=== PATIENT | female | born 1950 | race Caucasian/White ===

== ENCOUNTER → 2016-08-15 | Outpatient (CLI) | payer OTHER ==
[~2016-08-15] MED LIST: ACETAMINOPHEN PO; ARIMIDEX1 MG PO; ARIXTRA2.5 MG/0.1 SQ; ASPIRIN ENTERI325 M1 PO; CIPRO PO; COLACE50 MG PO; EFFEXOR XR PO; FERROUS SULFATE PO; FLAGYL PO; HYDROCODONE-APA1 T41 PO; KEFLEX500 MG; LISINOPRIL10 MG PO; LISINOPRIL20 MG PO; LORTAB 10/500 T1 TAB PO; LORTAB 5/500 TA1 TA1 PO; OXYCODONE HCL5 MG PO; OXYCONTIN20 MG PO; PERCOCET5/325; PHENERGAN25 MG PO; PRILOSEC PO; PRILOSEC20 M1 PO; PRILOSEC20 MG; SIMVASTATIN10 MG; SIMVASTATIN10 MG PO; VITAMIN D-32000 UNIT PO
--- NOTE | ~2016-08-15 | BD1 ---
[facility] A Service of [facility] RADIOLOGY TEXT RESULTS PATIENT: SAEED PLUMMER LOCATION: [facility] : 48 UNIT #: [id number] AGE: [address]: MORRIS BRENNER SEX: F ORDER DR: [id number] [facility] [address] [place], [place] [address] [id number] O MR#: [id number] Acc #: [id number] NAME: SAEED PLUMMER : 1950 SEX: F STUDY DATE/TIME: 08/15/2016 14:02 UNIT: [facility] ROOM: STUDY DESCRIPTION: BD Dexa Bone Dens 1+ Site Attending Physician: Morris Brenner M.D. Referring Physician: Morris Brenner M.D. Ordering Physician: Nataliia Enriquez Primary Care Physician: Morris Brenner M.D. MEDICAL IMAGING REPORT This report is preliminary unless electronic signature is present EXAM DEXA scan 08/15/2016 HISTORY Status post menopause with no hormone replacement therapy. Osteopenia. Hypertension with blood pressure medication for 2 years. FINDINGS Bone mineral density in the lumbar spine from L1-L4 was 1.123 g/cm2 which is 0.7 standard deviations above the mean when compared to the young adult reference population which is within the range of normal. This is 2.6 standard deviations above the mean when compared to the age-matched population. Compared with 09/21/2009 there has been an increase in bone mineral density in the lumbar spine of 1.2%. Bone mineral density in the left femoral neck was 0.792 g/cm2 which is 0.5 standard deviations below the mean when compared to the young adult reference population which is within the range of normal. This is 1.1 standard deviations above the mean when compared to the age-matched population. Compared with 09/21/2009 there has been a decrease in bone mineral density in the left hip of 6.1%. IMPRESSION Bone mineral density in the lumbar spine and left hip within the range of normal. Compared with 09/21/2009 there has been an increase in bone mineral density in the lumbar spine and a decrease in bone mineral density in the left hip. Dictated by... Brandon Pimentel M.D. THIS IS AN ELECTRONICALLY VERIFIED REPORT Brandon Pimentel M.D. at 08/17/2016 8:16 AM KRT/to [facility] A Service of [facility] RADIOLOGY TEXT RESULTS PATIENT: SAEED PLUMMER LOCATION: [facility] #: [id number] : 48 UNIT #: [id number] AGE: [address]: MORRIS BRENNER SEX: F ORDER DR: TD: 08/15/2016 16:38 JOB #: [id number] MEDICAL IMAGING REPORT Page 1 of 1 COPY
== END | disposition home or self-care (01) ==
LOC: CWCC 13:33
DX: N95.9 Unspecified menopausal and perimenopausal disorder (principal)
CPT/HCPCS: 77080